=== PATIENT | female | born 1985 | race Native Hawaiian/Other Pacific Islander ===

== ENCOUNTER 2018-06-09 11:25 | Emergency (ER) | payer OTHER ==
[2018-06-09 11:42] VITALS: O2SAT 99
[2018-06-09] MEDS ORDERED: Lactated Ringer's 1,000 ML IV STA (12:45)
[2018-06-09] MEDS ORDERED: Lactated Ringer's 1,000 ML ONE (13:11)
[2018-06-09 13:36] LABS: BASO % 0.6 % (0.0-2.0); EOS # 0.1 K/uL (0.0-0.7); HEMOGLOBIN 11.5 g/dL (11.0-16.0); LYMPH # 2.2 K/uL (1.0-4.3); LYMPH % 34.8 % (20.0-40.0); MEAN CELL VOLUME 77.9 fL (81.0-99.0); MEAN CORPUSCULAR HEMOGLOBIN 26.2 pg (27.0-31.0); MEAN CORPUSCULAR HGB CONC 33.6 g/dL (33.0-37.0); MEAN PLATELET VOLUME 8.2 fL (7.2-11.7); MONO # 0.5 K/uL (0.0-0.8); MONO % 7.8 % (0.0-10.0); NEUT # 3.5 K/uL (1.8-7.0); NEUT % 55.8 % (50.0-75.0); RBC 4.41 Mil/uL (3.80-5.20); RED CELL DISTRIBUTION WIDTH 16.6 % (11.5-14.5); WHITE BLOOD COUNT 6.3 K/uL (4.8-10.8)
[2018-06-09 13:49] LABS: ALB/GLOB RATIO 1.4 (1.0-2.1); ALT/SGPT 23 U/L (9-52); AST/SGOT 18 U/L (14-36); BLOOD UREA NITROGEN 8 mg/dL (7-17); CALCIUM 8.9 mg/dl (8.6-10.4); GFR NON-AFRICAN AMERICAN > 60; HCG,QUALITATIVE URINE NEGATIVE (NEGATIVE)
[2018-06-09 14:15] LABS: SQUAMOUS EPITHIAL 14 /hpf (0-5); URINE BACTERIA OCC (<OCC); URINE BILIRUBIN NEGATIVE (NEGATIVE); URINE BLOOD 1+ (NEGATIVE); URINE CLARITY Hazy (Clear); URINE COLOR Yellow (YELLOW); URINE GLUCOSE (UA) NORMAL (Normal); URINE LEUKOCYTE ESTERASE 3+ Leu/uL (Negative); URINE PROTEIN NEGATIVE (NEGATIVE); URINE UROBILINOGEN NORMAL mg/dL (0.2-1.0)
--- NOTE | 2018-06-09 14:47 | CT ---
Date of service: 06/09/2018 PROCEDURE: CT HEAD WITHOUT CONTRAST. HISTORY: Headache COMPARISON: None available. TECHNIQUE: Axial computed tomography images were obtained through the head/brain without intravenous contrast. Radiation dose: Total exam DLP = 798.08 mGy-cm. This CT exam was performed using one or more of the following dose reduction techniques: Automated exposure control, adjustment of the mA and/or kV according to patient size, and/or use of iterative reconstruction technique. FINDINGS: HEMORRHAGE: No intracranial hemorrhage. BRAIN: Normal rodrigez-white matter differentiation and density are appreciated throughout the cerebrum and cerebellum with the brainstem appearing unremarkable as well. There is no mass effect. There is no suspicious extra-axial fluid collection and the midline brain anatomy appears diffusely unremarkable. VENTRICLES: Unremarkable. No hydrocephalus. CALVARIUM: Unremarkable. PARANASAL SINUSES: Unremarkable as visualized. No significant inflammatory changes. MASTOID AIR CELLS: Unremarkable as visualized. No inflammatory changes. OTHER FINDINGS: None. IMPRESSION: Unremarkable noncontrast head CT.
[2018-06-09 14:48] VITALS: BP 99/65; PULSE 68; RESP 16; TEMP 98.4
--- NOTE | 2018-06-09 15:19 | C.PDOC ---
History Of Present Illness 33yo female, comes in to ED with complaints of headache. Pt has a Hx of headaches over the past few months. She is complaining of pain to right side of head, associated with photophobia. Denies dizziness, numbness/weakness, or any other associated symptoms No other complaints at this time. Time Seen by Provider: 06/09/18 12:15 Chief Complaint (Nursing): Headache History Per: Patient History/Exam Limitations: no limitations Onset/Duration Of Symptoms: Waxing/Waning Severity: Moderate Past Medical History Reviewed: Historical Data, Nursing Documentation, Vital Signs Vital Signs: Last Vital Signs Temp 98.4 F 06/09/18 14:47 Pulse 68 06/09/18 14:47 Resp 16 06/09/18 14:47 BP 99/65 L 06/09/18 14:47 Pulse Ox 99 06/09/18 18:24 - Medical History PMH: Depression Family History: States: No Known Family Hx - Social History Hx Alcohol Use: No Hx Substance Use: No - Immunization History Hx Tetanus Toxoid Vaccination: Yes Hx Influenza Vaccination: No Hx Pneumococcal Vaccination: No Review Of Systems Constitutional: Negative for: Fever, Chills Respiratory: Negative for: Shortness of Breath Gastrointestinal: Negative for: Nausea, Vomiting Neurological: Positive for: Headache. Negative for: Weakness, Numbness, Dizziness Physical Exam - Physical Exam Appears: Non-toxic, No Acute Distress, Other (uncomfortable) Skin: Normal Color, Warm, Dry, No Rash Head: Atraumatic, Normacephalic Eye(s): bilateral: Normal Inspection, PERRL, EOMI Nose: Normal Oral Mucosa: Moist Lips: Normal Appearing Neck: Normal ROM Chest: Symmetrical Cardiovascular: Rhythm Regular, No Murmur Respiratory: Normal Breath Sounds, No Accessory Muscle Use Gastrointestinal/Abdominal: Soft, No Tenderness Extremity: Normal ROM, No Deformity Neurological/Psych: Oriented x3, Normal Speech ED Course And Treatment - Laboratory Results Result Diagrams: 06/09/18 13:17 06/09/18 13:17 O2 Sat by Pulse Oximetry: 99 (RA) Pulse Ox Interpretation: Normal - CT Scan/US Head CT Other Rad Studies (CT/US): Read By Radiologist, Radiology Report Reviewed CT/US Interpretation: Accession No. : [id number]. Patient Name / ID : TIMOTHY AGUIRRE / [id number]. Exam Date : 06/07/2018 23:43:32 ( Approved ). Study Comment : Sex / Age : M / 30Y. Creator : raleigh gibson. Dictator : Raleigh Ling MD. Elevator Serviceman : Regional Account Manager : Raleigh Ling MD. Approver2 : Report Date : 06/08/2018 01:43:20. My Comment : . Date of service: 06/07/2018. PROCEDURE: CT LEFT FOOT WITHOUT CONTRAST. HISTORY: pt with h/o muscle distrophy with new injury,. COMPARISON: Left foot radiographs 06/07/2018. TECHNIQUE: A volumetric CT acquisition of the left foot is in performed without intravenous contrast as requested with multiplanar reformatted datasets provided for interpretation by various techniques. Contrast Dose: None. Radiation dose:Total exam DLP = 329.78 mGy-cm. This CT exam was performed using one or more of the following dose reduction techniques : Automated exposure control, adjustment of the mA and/or kV according to patient size, and/or use of iterative reconstruction technique. FINDINGS: Diffuse osteopenia suggests osteoporosis. No fracture, subluxation or dislocation. Marked pes cavus deformity reiterated. Foreshortening of the left 4th metatarsal bone reiterated. Local soft tissues appear diffusely unremarkable. No retained radiodense foreign body appreciable. IMPRESSION: No acute fracture identified, subluxation or dislocation. Prominent pes cavus deformity appreciated. Diffuse osteopenia suggests osteoporosis. Concordant preliminary report from [facility], 06/08/2018. Medical Decision Making Medical Decision Making: Patient was treated with IVF and Reglan IV with improvement. Patient is stable to be d/c home with PMD and Neurologist follow up. Disposition - Disposition Referrals: Jinny Candelario MD [IM] - Sudhir Chong MD [Staff Provider] - Disposition: HOME/ ROUTINE Disposition Time: 15:17 Condition: STABLE Additional Instructions: Follow up within 1-2 days. Return to ED if feel worse. Prescriptions: Acetaminophen/Butalbital/Caf [Fioricet] 1 tab PO TID PRN #20 tab PRN Reason: Headache Instructions: Headache, Adult Forms: [facility] (Grenadian) - Clinical Impression Clinical Impression: Headache - Scribe Statement The provider has reviewed the documentation as recorded by the Scribe (Cherie Orosco) All medical record entries made by the Scribe were at my direction and personally dictated by me. I have reviewed the chart and agree that the record accurately reflects my personal performance of the history, physical exam, medical decision making, and the department course for this patient. I have also personally directed, reviewed, and agree with the discharge instructions and disposition.
== END 2018-06-09 15:41 | disposition home or self-care (01) ==
LOC: C.ER 11:25
DX: R51 Headache (principal)
CPT/HCPCS: 70450; 80053; 81001; 84703; 85025; 96361; 96374; 99285; J2765; J7120

== ENCOUNTER 2018-10-27 09:21 | Emergency (ER) | payer OTHER ==
[2018-10-27 09:33] VITALS: BP 101/69; PULSE 99; RESP 18; TEMP 99.3; O2SAT 100
--- NOTE | 2018-10-27 10:16 | C.PDOC ---
History Of Present Illness 33 year old female presents to the emergency department with complaints of sore throat and fever for the last two days. Patient denies cough, vomiting,and diarrhea. Time Seen by Provider: 10/27/18 09:55 Chief Complaint (Nursing): ENT Problem History Per: Patient History/Exam Limitations: None Onset/Duration Of Symptoms: Days (2) Current Symptoms Are (Timing): Still Present Quality (Mouth/Throat): Other (soreness) Past Medical History Reviewed: Historical Data, Nursing Documentation, Vital Signs Vital Signs: Last Vital Signs Temp 99.3 F 10/27/18 09:31 Pulse 99 H 10/27/18 09:31 Resp 18 10/27/18 09:31 BP 101/69 10/27/18 09:31 Pulse Ox 100 10/27/18 09:31 - Medical History PMH: Depression Surgical History: No Surg Hx Family History: States: No Known Family Hx - Social History Hx Alcohol Use: No Hx Substance Use: No - Immunization History Hx Tetanus Toxoid Vaccination: Yes Hx Influenza Vaccination: No Hx Pneumococcal Vaccination: No Review Of Systems Except As Marked, All Systems Reviewed And Found Negative. Constitutional: Positive for: Fever ENT: Positive for: Throat Pain Physical Exam - Physical Exam Appears: Non-toxic, No Acute Distress Skin: Normal Color, Warm, Dry Head: Atraumatic, Normacephalic Eye(s): bilateral: Normal Inspection, PERRL, EOMI Nose: Normal Oral Mucosa: Moist Throat: Erythema, Exudate, Other (hypertrophy) Neck: Normal, Supple Lymphatic: Adenopathy (positive tender anterior cervical lymphadenopathy) Cardiovascular: Rhythm Regular, No Murmur Respiratory: Normal Breath Sounds, No Rales, No Rhonchi, No Wheezing Neurological/Psych: Oriented x3, Normal Speech, Normal Cognition ED Course And Treatment O2 Sat by Pulse Oximetry: 100 (RA) Medical Decision Making Medical Decision Making: Plan: Amoxil 500mg PO Motrin 600mg PO POC Urine Assessment: Pharyngitis Disposition Counseled Patient/Family Regarding: Diagnosis, Need For Followup, Rx Given - Disposition Referrals: Jinny Candelario MD [IM] - Disposition: HOME/ ROUTINE Disposition Time: 10:14 Condition: STABLE Additional Instructions: follow up with your doctor within 2 days call to make an appointment take medications as prescribed return to ER if symptoms worsens or progres Prescriptions: Amoxicillin 875 mg PO BID 10 Days #20 tablet Naproxen [Naprosyn] 500 mg PO BID PRN #16 tab PRN Reason: Pain, Moderate (4-7) Instructions: Sore Throat, Adult (DC) Forms: Gen Discharge Inst Amharic, [facility] (Wolof), Work Excuse - Clinical Impression Clinical Impression: Pharyngitis - Scribe Statement The provider has reviewed the documentation as recorded by the Scribe (Parag Matamoros) Provider Attestation: All medical record entries made by the Scribe were at my direction and personally dictated by me. I have reviewed the chart and agree that the record accurately reflects my personal performance of the history, physical exam, medical decision making, and the department course for this patient. I have also personally directed, reviewed, and agree with the discharge instructions and disposition.
== END 2018-10-27 10:26 | disposition home or self-care (01) ==
LOC: C.ER 09:21
DX: J02.9 Acute pharyngitis, unspecified (principal)